=== PATIENT | male | born 1980 | race African-American/Black ===

== ENCOUNTER 2022-06-03 22:55 | Emergency (ER) | payer MEDICAID ==
[~2022-06-03] VITALS: Ht 175.3 cm; Wt 63.5 kg
[2022-06-03 22:55] VITALS: BP 168/104
--- NOTE | 2022-06-03 22:55 | NUR ---
PT [facility]. TAKEN TO BED 9
--- NOTE | 2022-06-03 22:59 | NUR ---
Dr. Caceres examining patient.
--- NOTE | 2022-06-03 23:01 | NUR ---
Patient BIB by ALS from home. C/O seizure x today. Per reported, patient had seizure at home. No medication given at the scence, patient already stop seizure episode. Patient reported, moved to this area ~ one year ago, did not seen by PMD or refill medication. A/O,X4, denies pain, no sob. PMHx: HTN and Epilepsy.
--- NOTE | 2022-06-03 23:03 | NUR ---
Patient does not wish to proceed with medical care recommended by Dr. Caceres. Patient given information related to possible complications, up to and including , which could occur as a result of leaving hospital at this time. Patient verbalizes understanding of risks involved leaving against medical advice. Patient has signed AMA form.
[2022-06-03 23:05] VITALS: BP 168/104
--- NOTE | 2022-06-03 23:47 | NUR ---
Spoke with his family , they will be on the way to pick him up.
== END 2022-06-03 23:03 | disposition left against medical advice (07) ==
LOC: EDBD 22:55 → MED 22:55
DX: R56.9 Unspecified convulsions (principal); F17.200 Nicotine dependence, unspecified, uncomplicated; I10 Essential (primary) hypertension
CPT/HCPCS: 99283